=== PATIENT | female | born 1950 | race Caucasian/White ===

== ENCOUNTER 2024-03-11 06:54 | Outpatient (CLI) | payer MEDICARE, OTHER, SELFPAY ==
[2024-03-11 07:20] VITALS: PULSE 77; RESP 18; O2SAT 93
[2024-03-11] MEDS: albuterol 2.5 mg/3 mL Neb INHALATION (07:20)
[2024-03-11 07:24] VITALS: PULSE 73
== END 2024-03-11 06:55 | disposition home or self-care (01) ==
LOC: RT 06:56
PROVIDERS: PCP Family Medicine; Visit Provider Family Medicine
DX: J42 Unspecified chronic bronchitis (principal)
CPT/HCPCS: 94060; J7613

== ENCOUNTER → 2024-03-13 09:26 | Outpatient (CLI) | payer MEDICARE, OTHER, SELFPAY ==
--- NOTE | 2024-03-13 09:30 | CT_ITS ---
WS: [id number] LDCT LUNG CANCER SCREENING TECHNIQUE: Noncontrast CT of the chest with coronal and sagittal reformatted images. CLINICAL INFORMATION: NICOTINE DEPENDENCE,CIGARETTES COMPARISON: None. DLP: 45.91 mGy.cm DIvol: Mean CTDIvol: 0.90 (mGy) All CT scans at [facility] use at least one of these dose optimization techniques: automat ed exposure control; mA and/or kV adjustment per patient size (includes targeted exams where dose is matched to clinical indication); or iterative reconstruction. FINDINGS: Subsegmental atelectasis and pleural parenchymal scarring in the RIGHT upper lobe anteriorly. Small p leural nodule RIGHT middle lobe measuring 5 mm. Slight subpleural nodularity RIGHT upper lobe anterio rly. Calcified granulomas LEFT upper lobe. Normal caliber thoracic aorta. Aortic calcification. Coronary calcification. No mediastinal or hilar lymphadenopathy. No axillary lymphadenopathy. Normal thoracic kyphosis. Adrenal glands are normal. CT/CT lung screening [id number] IMPRESSION: LUNG-RADS: 2-Benign Appearance or Behavior FOLLOW UP: 12 Month: Continue annual screening with LDCT
== END | disposition home or self-care (01) ==
LOC: RAD 09:25
PROVIDERS: Family Provider Family Medicine; PCP Family Medicine; Visit Provider Family Medicine
DX: Z12.2 Encounter for screening for malignant neoplasm of respiratory organs (principal); F17.210 Nicotine dependence, cigarettes, uncomplicated; J98.11 Atelectasis; J98.4 Other disorders of lung; R91.1 Solitary pulmonary nodule; J84.10 Pulmonary fibrosis, unspecified
CPT/HCPCS: 71271

== ENCOUNTER 2024-10-13 10:12 | Outpatient (CLI) | payer MEDICARE, SELFPAY ==
--- NOTE | 2024-10-13 10:25 | XR_ITS ---
WS: [id number] XR chest 2V* [id number] REASON FOR EXAM: ACUTE COUGH FINDINGS: Mild tortuosity and ectasia of the thoracic aorta. Normal heart size. Calcified granulomatous disease in both hemithoraces. Significant flattening of the hemidiaphragms and moderate expansion of the anterior clear space. Calcified granulomatous disease in both hemithoraces. Mild peribronchial cuffing. No lung opacities. Mild levoscoliosis of the thoracic spine with moderate degenerative spondylosis. XR/XR chest 2V* [id number] IMPRESSION: Chronic obstructive lung disease with chronic small airway disease with possibl y acute small airway inflammatory change. No lung consolidation.
== END 2024-10-13 10:13 | disposition home or self-care (01) ==
PROVIDERS: Family Provider Family Medicine; PCP Family Medicine; Visit Provider Family Medicine
DX: R05.1 Acute cough (principal); J44.9 Chronic obstructive pulmonary disease, unspecified; R91.8 Other nonspecific abnormal finding of lung field; I77.810 Thoracic aortic ectasia; D71 Functional disorders of polymorphonuclear neutrophils; M41.84 Other forms of scoliosis, thoracic region; M47.894 Other spondylosis, thoracic region
CPT/HCPCS: 71046